=== PATIENT | male | born 1985 | race Caucasian/White ===

== ENCOUNTER 2017-02-28 20:21 | Emergency (ER) | payer SELFPAY ==
--- NOTE | 2017-02-28 20:39 | ED Physician Documentation ---
General Adult - HISTORIAN Historian: patient - HPI Chief Complaint: General Adult (cristina) Additional Information: jaw pain Onset: other (2 weeks ago) Timing: still present, worse Severity: moderate Modifying Factors: moving jaw Context: see below Quality: pain with times that it becomes shooting in nature Location: Right TMJ area Further Comments: yes (Patient has been having some pain in the right TMJ area with radiation into the temporal area and into right periauricular area. About 2 weeks ago fainted when he did not eat and was sorking herd and hit that area of his head on a metal bar surrounding a water. No LOC. Pain started the next day. No hearing problems. No pain with chews, has some pain with clenching teeth. Has some pain with opening mouth. No popping or clicking the TMJ area) - ROS CONST: no problems. denies: fever, chills EYES/ENT: other (no hearing problems) - PAST HX Past History: other (no medical problems) Surgeries/Procedures: none Immunizations: referred to PCP Allergies/Adverse Reactions: Allergies Allergy/AdvReac Type Severity Reaction Status Date / Time No Known Allergies Allergy Verified 02/28/17 20:31 Home Medications: Ambulatory Orders Medication Instructions Recorded Tramadol HCl [Ultram] 50 mg PO Q6 PRN #20 tablet 02/28/17 - SOCIAL HX Smoking History: less than 1 pack/day Alcohol Use: none Drug Use: marijuana - FAMILY HX Family History: No - REVIEWED ASSESSMENTS Nursing Assessment Reviewed: Yes Vitals Reviewed: Yes General Adult Physical Exam - PHYSICAL EXAM GENERAL APPEARANCE: moderate distress EENT: eye inspection normal, pharynx normal, no signs of dehydration, MALINI, TM' s nml (external ear canal normal, hearing normal), other (tenderness over TMJ area, good ROM, no bony abnl noted. ). No: ENT inspection normal NECK: normal inspection, thyroid normal, supple RESPIRATORY: no resp distress, chest non-tender, breath sounds normal. No: wheezes, rales, rhonchi CVS: reg rate & rhythm, heart sounds normal, equal pulses, no murmur SKIN: warm/dry, normal color EXTREMITIES: non-tender, normal range of motion NEURO: oriented X3, mood/affect nml Discharge Clincal Impression: Temporomandibular joint (TMJ) pain Prescriptions: Tramadol HCl [Ultram] 50 mg PO Q6 PRN #20 tablet PRN Reason: Pain Referrals: Primary Doctor,No [Primary Care Provider] - 2 Days Additional Instructions: Try using a cool compress to the jaw joint area. Start taking some Aleve 220mg tablets. Take 2 tablets twice a day with food. Do this for at least one week. Supplement with Tramadol 50mg one every 6 hours as needed. Take both with food because they may cause nausea. Try not to chew food on that side. Do not talk more then necessary. If not better in one week follow-up with your primary care provider. Condition: Stable Disposition: 01 HOME, SELF-CARE Decision to Admit: NO Date of Decison to Admit: 02/28/17 Decision Time: 20:49
[2017-02-28] MEDS: KETOROLAC TROMETHAMINE 60 MG/2 ML VIAL IM ONE (20:52)
[2017-02-28 21:10] VITALS: BP 147/82
== END 2017-02-28 21:05 | disposition home or self-care (01) ==
LOC: ED 20:21
DX: M26.621 Arthralgia of right temporomandibular joint (principal)
CPT/HCPCS: 96372; 99283; J1885